=== PATIENT | male | born 1965 | race American Indian/Alaskan Native ===

== ENCOUNTER → 2019-12-09 | Outpatient (CLI) | payer OTHER ==
[~2019-12-09] MED LIST: ATEN25 PO; ATOR40TA PO; BASAGLAR K100 UNIT/2; Prinivil10 MG PO
[2019-12-10 15:21] LABS: Adenovirus F 40/41 Not Detected (NOT DETECT); Astrovirus Not Detected (NOT DETECT); Campylobacter Sp Not Detected (NOT DETECT); Cryptosporidium Not Detected (NOT DETECT); Cyclospora Cayetanensis Not Detected (NOT DETECT); E. Coli O157 Not Detected (NOT DETECT); Entamoeba Histolytica Not Detected (NOT DETECT); Enteroaggregative E. coli-EAEC Not Detected (NOT DETECT); Enteropathogenic E. coli-EPEC Not Detected (NOT DETECT); Enterotoxigenic E. coli-ETEC Not Detected (NOT DETECT); Giardia Lamblia Not Detected (NOT DETECT); Norovirus GI/GII Not Detected (NOT DETECT); Plesiomonas Shigelloides Not Detected (NOT DETECT); Rotavirus A Not Detected (NOT DETECT); Salmonella Sp Not Detected (NOT DETECT); Sapovirus Not Detected (NOT DETECT); Shiga Toxin-prod E. coli-STEC Not Detected (NOT DETECT); Shigella/Enteroin E. coli-EIEC Not Detected (NOT DETECT); Vibrio Cholerae Not Detected (NOT DETECT); Vibrio Sp Not Detected (NOT DETECT); Yersinia Enterocolitica Not Detected (NOT DETECT)
== END | disposition home or self-care (01) ==
LOC: LAB SHORT 12:44 → OLS 12:44 → LAB SHORT 12-10 12:44
PROVIDERS: Internal Medicine Gastroenterology
DX: R19.7 Diarrhea, unspecified (principal)
CPT/HCPCS: 0097U; 87177; 87209

== ENCOUNTER 2023-02-16 08:11 | Day surgery (SDC) | payer OTHER ==
[~2023-02-16] VITALS: Ht 188 cm; Wt 141.8 kg
[~2023-02-16 08:11] MED LIST changes: +Aspir 8181 MG
[2023-02-16] MEDS ORDERED: JARDIANCE10 MG (08:41)
[2023-02-16] MEDS ORDERED: FLUTICASONE-SA1 EAC1 (08:41)
[2023-02-16] MEDS ORDERED: ZERVIATE1 EACH (08:41)
[2023-02-16] MEDS ORDERED: DHEA MICRONIZED10 MG (08:42)
[2023-02-16] MEDS ORDERED: PIOG15 (08:42)
[2023-02-16] MEDS ORDERED: OZEMPIC0.25 MG/0. (08:42)
[2023-02-16] MEDS ORDERED: LACT (08:42)
--- NOTE | 2023-02-16 09:38 | NUR ---
02/16/23 0938 Shania Huggins 4% LIDOCAINE NEBULIZER GIVEN IN PREOP PER MD CLANCY.
== END 2023-02-16 11:24 | disposition home or self-care (01) ==
LOC: ORSCSDS 08:11
PROVIDERS: Internal Medicine Gastroenterology
PROC: 0DBE8ZX Excision of Large Intestine, Via Natural or Artificial Opening Endoscopic, Diagnostic (ICD-10-PCS; principal; 2023-02-16 09:30)
PROC: 0DBL8ZX Excision of Transverse Colon, Via Natural or Artificial Opening Endoscopic, Diagnostic (ICD-10-PCS; principal; 2023-02-16 09:30)
PROC: 0DB98ZX Excision of Duodenum, Via Natural or Artificial Opening Endoscopic, Diagnostic (ICD-10-PCS; principal; 2023-02-16 09:30)
DX: R19.7 Diarrhea, unspecified (principal); K92.1 Melena; K31.7 Polyp of stomach and duodenum; Z86.010 Personal history of colon polyps; K64.4 Residual hemorrhoidal skin tags; K57.30 Diverticulosis of large intestine without perforation or abscess without bleeding; K29.80 Duodenitis without bleeding; D18.1 Lymphangioma, any site; I10 Essential (primary) hypertension; E11.9 Type 2 diabetes mellitus without complications; Z79.899 Other long term (current) drug therapy; Z79.84 Long term (current) use of oral hypoglycemic drugs; Z79.4 Long term (current) use of insulin; G47.33 Obstructive sleep apnea (adult) (pediatric); F32.A Depression, unspecified; E66.01 Morbid (severe) obesity due to excess calories; Z68.41 Body mass index [BMI] 40.0-44.9, adult
CPT/HCPCS: 82947; 88305; J2001; J2250; J2704; J7120

== ENCOUNTER → 2023-12-28 | Outpatient (CLI) | payer OTHER ==
[~2023-12-28] MED LIST changes: +DHEA MICRONIZED10 MG; +FLUTICASONE-SA1 EAC1; +JARDIANCE10 MG; +LACT; +OZEMPIC0.25 MG/0.; +PIOG15; +ZERVIATE1 EACH
[2024-01-09 12:28] LABS: PANCREATIC ELASTASE,FECAL 426 ug/g (>=100)
== END ==
LOC: LAB SHORT 17:07 → LAB 17:07
PROVIDERS: Family Medicine
DX: K52.9 Noninfective gastroenteritis and colitis, unspecified (principal)
CPT/HCPCS: 82653

== ENCOUNTER → 2025-11-17 | Outpatient (CLI) | payer OTHER ==
[2025-11-17 20:28] LABS: C DIFFICILE DNA NEGATIVE (Negative)
[2025-11-20 10:27] LABS: CALPROTECTIN,FECAL <5 ug/g (<=49)
[2025-11-20 13:37] LABS: FAT, FECAL - NEUTRAL Normal (Normal); FAT, FECAL - SPLIT Normal (Normal)
[2025-11-21 22:40] LABS: OVA AND PARASITE,FECAL INTERP Negative (Negative)
== END ==
LOC: LAB SHORT 04:08 → LAB 04:08
PROVIDERS: Family Medicine
DX: K52.9 Noninfective gastroenteritis and colitis, unspecified (principal)
CPT/HCPCS: 82705; 83993; 87177; 87209; 87493; 89055